=== PATIENT | male | born 1960 | race Caucasian/White ===

== ENCOUNTER 2016-08-13 18:57 | Emergency (ER) | payer BC ==
[~2016-08-13] VITALS: Ht 177.8 cm; Wt 115.9 kg
[~2016-08-13 18:57] MED LIST: ATROVENT I0.2 MG/1 M IH; DOXYCYCLINE 10100 MG PO; LISINOPRIL20 MG PO; NO HOME MEDICATIONS; PREDNISONE10 M1 PO
[2016-08-13 22:33] VITALS: BP 140/76
== END 2016-08-13 22:33 | disposition short-term general hospital (02) ==
LOC: ED 18:57
DX: S09.90XA Unspecified injury of head, initial encounter (principal); S80.01XA Contusion of right knee, initial encounter; S13.4XXA Sprain of ligaments of cervical spine, initial encounter; S23.3XXA Sprain of ligaments of thoracic spine, initial encounter; S33.5XXA Sprain of ligaments of lumbar spine, initial encounter; S30.1XXA Contusion of abdominal wall, initial encounter; S30.0XXA Contusion of lower back and pelvis, initial encounter; I10 Essential (primary) hypertension; V84.6XXA Passenger of special agricultural vehicle injured in nontraffic accident, initial encounter; Y92.89 Other specified places as the place of occurrence of the external cause; S01.01XA Laceration without foreign body of scalp, initial encounter
CPT/HCPCS: A4353; J2405; J3010; J7030; L0150

== ENCOUNTER → 2017-01-01 | Outpatient (CLI) | payer BC ==
[~2017-01-01] VITALS: Ht 177.8 cm; Wt 119.5 kg
[~2017-01-01] MED LIST changes: +AMLODIPINE BESYL5 MG PO; +CEFDINIR300 MG PO; +CLARITIN 1010 MG/TAB PO; +FLUTICASON0.05 MG/AC NS; +HYDROCHLOROTHIA50 M1 PO; +PRILOSEC 20MG20 MG PO; +TYLENOL 325MG325 MG PO; +VITAMIN B12 781 TAB PO
[2017-01-01 09:11] LABS: ALBUMIN 4.2 g/dL (3.5-5.0); BUN/CREATININE RATIO 19.6 (6.0-26.0); CALCIUM 10.2 mg/dL (8.4-10.2); POTASSIUM 3.7 mmol/L (3.6-5.0); TOTAL BILIRUBIN 1.2 mg/dL (0.2-1.3); TOTAL PROTEIN 7.6 g/dL (6.3-8.2)
[2017-01-01 09:20] LABS: PROTHROMBIN TIME 9.3 SECONDS (9.0-12.0)
[2017-01-01 09:34] LABS: PH-URINE 5.5 (5.0 - 8.0); URINE APPEARANCE CLEAR; URINE BILIRUBIN NEGATIVE (NEGATIVE); URINE BLOOD NEGATIVE (NEGATIVE); URINE COLOR YELLOW; URINE GLUCOSE NEGATIVE (NEGATIVE); URINE KETONE NEGATIVE (NEGATIVE); URINE LEUKOCYTE ESTERASE NEGATIVE (NEGATIVE); URINE NITRATE NEGATIVE (NEGATIVE); URINE PROTEIN(semi-quant) NEGATIVE (NEGATIVE); URINE UROBILINOGEN NORMAL (NORMAL); URINE WBC 0-1 /hpf (0-3)
[2017-01-01 09:39] VITALS: BP 135/78
[2017-01-01 09:54] LABS: HEMATOCRIT 41.7 % (42.0-52.0); HEMOGLOBIN 14.7 g/dL (13.5-18.0); MEAN CELL VOLUME 86 fl (78-100); MEAN CORPUSCULAR HEMOGLOBIN 30 pg (27-31); MEAN CORPUSCULAR HGB CONC 35 g/dL (33-37); MEAN PLATELET VOLUME 9.4 fl (7.4-10.4); PLATELET COUNT 224 K/mm3 (130-400); RED BLOOD COUNT 4.87 M/mm3 (4.20-5.60); RED CELL DISTRIBUTION WIDTH 13.3 % (11.5-14.5); WHITE BLOOD COUNT 5.2 K/mm3 (4.8-10.8)
[2017-01-01 09:55] LABS: LYMPHOCYTE 21 % (20-51); MONOCYTE 16 % (3-10); NEUTROPHILS 61 % (42-75)
== END ==
LOC: AMSURD 08:39
PROVIDERS: Nurse Practitioner Family
DX: Z01.818 Encounter for other preprocedural examination (principal); I10 Essential (primary) hypertension; E66.01 Morbid (severe) obesity due to excess calories

== ENCOUNTER 2017-01-12 10:48 | Emergency (ER) | payer BC ==
[~2017-01-12] VITALS: Ht 175.3 cm; Wt 113.6 kg
[2017-01-12] MEDS ORDERED: GENTAMICIN EYE D5 ML OP (10:56)
[2017-01-12] MEDS ORDERED: AMLODIPINE BESYL5 MG PO (10:57)
[2017-01-12] MEDS ORDERED: NORCO 325 MG-51 TA1 PO (12:34)
[2017-01-12 13:12] VITALS: BP 168/99
== END 2017-01-12 12:42 | disposition home or self-care (01) ==
LOC: ED 10:48
DX: S61.412A Laceration without foreign body of left hand, initial encounter (principal); Z23 Encounter for immunization; S60.222A Contusion of left hand, initial encounter; W22.8XXA Striking against or struck by other objects, initial encounter; Y92.009 Unspecified place in unspecified non-institutional (private) residence as the place of occurrence of the external cause; I10 Essential (primary) hypertension; G47.30 Sleep apnea, unspecified
CPT/HCPCS: 90715; A4550

== ENCOUNTER 2017-01-23 13:36 | Emergency (ER) | payer BC ==
[~2017-01-23 13:36] MED LIST changes: +GENTAMICIN EYE D5 ML OP; +NORCO 325 MG-51 TA1 PO
== END 2017-01-23 14:00 | disposition home or self-care (01) ==
LOC: ED 13:36
DX: Z48.02 Encounter for removal of sutures (principal)

== ENCOUNTER 2017-07-04 10:00 | Emergency (ER) | payer BC ==
[~2017-07-04] VITALS: Ht 175.3 cm; Wt 120.2 kg
[2017-07-04 10:54] LABS: HEMATOCRIT 41.4 % (42.0-52.0); HEMOGLOBIN 14.9 g/dL (13.5-18.0); MEAN CELL VOLUME 84 fl (78-100); MEAN CORPUSCULAR HEMOGLOBIN 30 pg (27-31); MEAN CORPUSCULAR HGB CONC 36 g/dL (33-37); MEAN PLATELET VOLUME 9.2 fl (7.4-10.4); PLATELET COUNT 265 K/mm3 (130-400); RED BLOOD COUNT 4.96 M/mm3 (4.20-5.60); RED CELL DISTRIBUTION WIDTH 13.4 % (11.5-14.5)
[2017-07-04 11:04] LABS: ALBUMIN 4.3 g/dL (3.5-5.0); BUN/CREATININE RATIO 19.7 (6.0-26.0); CALCIUM 10.1 mg/dL (8.4-10.2); POTASSIUM 3.1 mmol/L (3.6-5.0); TOTAL BILIRUBIN 1.4 mg/dL (0.2-1.3)
[2017-07-04 11:18] LABS: BAND 5 % (0-10); LYMPHOCYTE 4 % (20-51); MONOCYTE 4 % (3-10); NEUTROPHILS 87 % (42-75)
[2017-07-04] MEDS ORDERED: VITAMIN C500 M6 (11:41)
[2017-07-04] MEDS ORDERED: VITAMIN B122500 MC1 (11:41)
[2017-07-04 12:17] LABS: URINE APPEARANCE CLOUDY; URINE COLOR YELLOW
[2017-07-04 12:18] LABS: URINE BILIRUBIN NEGATIVE (NEGATIVE); URINE BLOOD NEGATIVE (NEGATIVE); URINE KETONE 1+ (NEGATIVE); URINE LEUKOCYTE ESTERASE NEGATIVE (NEGATIVE); URINE NITRATE NEGATIVE (NEGATIVE); URINE PROTEIN(semi-quant) 2+ mg/dL (NEGATIVE); URINE UROBILINOGEN NORMAL (NORMAL)
[2017-07-04 14:49] VITALS: BP 138/72
== END 2017-07-04 14:37 | disposition short-term general hospital (02) ==
LOC: ED 10:00
PROVIDERS: Physician Assistant
DX: K81.0 Acute cholecystitis (principal); I10 Essential (primary) hypertension; Z87.891 Personal history of nicotine dependence; Z88.0 Allergy status to penicillin; K21.9 Gastro-esophageal reflux disease without esophagitis
CPT/HCPCS: J1885; J2405; Q9967

== ENCOUNTER → 2018-01-01 | Outpatient (CLI) | payer BC ==
[~2018-01-01] VITALS: Ht 175.3 cm; Wt 121.4 kg
[~2018-01-01] MED LIST changes: +COLACE100 M1 PO; +VITAMIN B122500 MC1; +VITAMIN C500 M6
[2018-01-01 10:17] LABS: HEMATOCRIT 41.7 % (42.0-52.0); HEMOGLOBIN 14.5 g/dL (13.5-18.0); MEAN CELL VOLUME 86 fl (78-100); MEAN CORPUSCULAR HEMOGLOBIN 30 pg (27-31); MEAN CORPUSCULAR HGB CONC 35 g/dL (33-37); MEAN PLATELET VOLUME 8.8 fl (7.4-10.4); PLATELET COUNT 243 K/mm3 (130-400); RED BLOOD COUNT 4.85 M/mm3 (4.20-5.60); RED CELL DISTRIBUTION WIDTH 13.2 % (11.5-14.5); WHITE BLOOD COUNT 5.1 K/mm3 (4.8-10.8)
[2018-01-01 10:33] VITALS: BP 157/88
[2018-01-01 11:07] LABS: ALBUMIN 4.3 g/dL (3.5-5.0); POTASSIUM 3.7 mmol/L (3.6-5.0); TOTAL BILIRUBIN 1.3 mg/dL (0.2-1.3); TOTAL PROTEIN 7.6 g/dL (6.3-8.2)
[2018-01-01 12:01] LABS: LYMPHOCYTE 24 % (20-51); MONOCYTE 11 % (3-10); NEUTROPHILS 62 % (42-75)
[2018-01-01 13:23] LABS: PROTHROMBIN TIME 9.9 SECONDS (9.0-12.0)
[2018-01-01 13:25] LABS: URINE APPEARANCE CLEAR; URINE BILIRUBIN NEGATIVE (NEGATIVE); URINE BLOOD NEGATIVE (NEGATIVE); URINE COLOR YELLOW; URINE GLUCOSE NEGATIVE (NEGATIVE); URINE KETONE NEGATIVE (NEGATIVE); URINE LEUKOCYTE ESTERASE NEGATIVE (NEGATIVE); URINE NITRATE NEGATIVE (NEGATIVE); URINE PROTEIN(semi-quant) TRACE mg/dL (NEGATIVE); URINE UROBILINOGEN NORMAL (NORMAL); URINE WBC 0-1 /hpf (0-3)
== END ==
LOC: AMSURD 09:56
PROVIDERS: Family Medicine
DX: Z01.818 Encounter for other preprocedural examination (principal)

== ENCOUNTER 2019-01-18 17:42 | Emergency (ER) | payer BC ==
[~2019-01-18] VITALS: Ht 177.8 cm; Wt 119.1 kg
[2019-01-18 18:53] LABS: HEMATOCRIT 43.1 % (42.0-52.0); HEMOGLOBIN 15.1 g/dL (13.5-18.0); MEAN CELL VOLUME 83 fl (78-100); MEAN CORPUSCULAR HEMOGLOBIN 29 pg (27-31); MEAN CORPUSCULAR HGB CONC 35 g/dL (33-37); MEAN PLATELET VOLUME 8.7 fl (7.4-10.4); PLATELET COUNT 240 K/mm3 (130-400); RED BLOOD COUNT 5.21 M/mm3 (4.20-5.60); RED CELL DISTRIBUTION WIDTH 13.5 % (11.5-14.5); WHITE BLOOD COUNT 9.5 K/mm3 (4.8-10.8)
[2019-01-18 19:06] LABS: ALBUMIN 4.3 g/dL (3.5-5.0); POTASSIUM 3.1 mmol/L (3.5-5.1)
[2019-01-18 19:07] LABS: CALCIUM 9.8 mg/dL (8.3-10.5)
[2019-01-18 19:08] LABS: TOTAL PROTEIN 7.6 g/dL (6.4-8.3)
[2019-01-18 19:10] LABS: TOTAL BILIRUBIN 1.4 mg/dL (0.2-1.2)
[2019-01-18 19:22] LABS: BAND 1 % (0-10); LYMPHOCYTE 2 % (20-51); MONOCYTE 12 % (3-10); NEUTROPHILS 84 % (42-75)
[2019-01-18 20:50] LABS: URINE APPEARANCE CLEAR; URINE COLOR YELLOW
[2019-01-18 20:51] LABS: URINE BILIRUBIN NEGATIVE (NEGATIVE); URINE BLOOD TRACE (NEGATIVE); URINE KETONE NEGATIVE (NEGATIVE); URINE LEUKOCYTE ESTERASE NEGATIVE (NEGATIVE); URINE MUCUS PRESENT (NOT PRESENT); URINE NITRATE NEGATIVE (NEGATIVE); URINE PROTEIN(semi-quant) 2+ mg/dL (NEGATIVE); URINE UROBILINOGEN NORMAL (NORMAL); URINE WBC 0-1 /hpf (0-3)
[2019-01-19] MEDS ORDERED: POTASSIUM CHLO20 ME3 PO (00:25)
[2019-01-19] MEDS ORDERED: ZOFRAN ODT4 MG PO (00:25)
[2019-01-19] MEDS ORDERED: CLEOCIN HCL150 M1 PO (00:25)
[2019-01-19 00:33] VITALS: BP 126/75
== END 2019-01-19 00:33 | disposition home or self-care (01) ==
LOC: ED 17:42
PROVIDERS: Family Medicine
DX: T14.8XXA Other injury of unspecified body region, initial encounter (principal); E86.9 Volume depletion, unspecified; E87.6 Hypokalemia; R73.9 Hyperglycemia, unspecified; R80.9 Proteinuria, unspecified; I10 Essential (primary) hypertension; K21.9 Gastro-esophageal reflux disease without esophagitis; G47.30 Sleep apnea, unspecified; Z90.49 Acquired absence of other specified parts of digestive tract; W33.01XA Accidental discharge of shotgun, initial encounter
CPT/HCPCS: A4216; J0696; J7030

== ENCOUNTER → 2019-01-22 | Day surgery (SDC) | payer BC ==
[2019-01-19 00:33] VITALS: BP 126/75
[~2019-01-22] MED LIST changes: +CLEOCIN HCL150 M1 PO; +POTASSIUM CHLO20 ME3 PO; +ZOFRAN ODT4 MG PO
== END ==
LOC: MSO 08:56
DX: Z86.010 Personal history of colon polyps (principal); K63.5 Polyp of colon; K62.1 Rectal polyp; E66.01 Morbid (severe) obesity due to excess calories; Z68.37 Body mass index [BMI] 37.0-37.9, adult; K22.2 Esophageal obstruction; Z90.49 Acquired absence of other specified parts of digestive tract; Z88.0 Allergy status to penicillin; K21.0 Gastro-esophageal reflux disease with esophagitis; Z87.891 Personal history of nicotine dependence; J45.909 Unspecified asthma, uncomplicated; Z79.899 Other long term (current) drug therapy
CPT/HCPCS: G0105; 00812; J2704; J3010; J7120

== ENCOUNTER → 2019-01-30 | Outpatient (CLI) | payer BC ==
[2019-01-19 00:33] VITALS: BP 126/75
[2019-01-30 09:29] LABS: ALBUMIN 4.4 g/dL (3.5-5.0); POTASSIUM 3.3 mmol/L (3.5-5.1)
[2019-01-30 09:30] LABS: CALCIUM 10.4 mg/dL (8.3-10.5)
[2019-01-30 09:32] LABS: TOTAL PROTEIN 7.6 g/dL (6.4-8.3)
[2019-01-30 09:33] LABS: TOTAL BILIRUBIN 1.6 mg/dL (0.2-1.2)
[2019-01-30 09:43] LABS: HEMATOCRIT 43.3 % (42.0-52.0); MEAN CELL VOLUME 84 fl (78-100); MEAN CORPUSCULAR HEMOGLOBIN 29 pg (27-31); MEAN CORPUSCULAR HGB CONC 35 g/dL (33-37); MEAN PLATELET VOLUME 9.2 fl (7.4-10.4); PLATELET COUNT 308 K/mm3 (130-400); RED BLOOD COUNT 5.17 M/mm3 (4.20-5.60); RED CELL DISTRIBUTION WIDTH 13.6 % (11.5-14.5); WHITE BLOOD COUNT 3.6 K/mm3 (4.8-10.8)
[2019-01-30 09:49] LABS: URINE APPEARANCE CLEAR; URINE BILIRUBIN NEGATIVE (NEGATIVE); URINE BLOOD NEGATIVE (NEGATIVE); URINE COLOR YELLOW; URINE GLUCOSE NEGATIVE (NEGATIVE); URINE KETONE NEGATIVE (NEGATIVE); URINE LEUKOCYTE ESTERASE NEGATIVE (NEGATIVE); URINE MUCUS PRESENT (NOT PRESENT); URINE NITRATE NEGATIVE (NEGATIVE); URINE PROTEIN(semi-quant) 2+ mg/dL (NEGATIVE); URINE UROBILINOGEN NORMAL (NORMAL); URINE WBC 0-1 /hpf (0-3)
[2019-01-30 09:57] LABS: LYMPHOCYTE 38 % (20-51); MONOCYTE 12 % (3-10); NEUTROPHILS 45 % (42-75)
== END ==
LOC: LAB 09:05
PROVIDERS: Family Medicine
DX: Z00.00 Encounter for general adult medical examination without abnormal findings (principal); Z12.5 Encounter for screening for malignant neoplasm of prostate; I10 Essential (primary) hypertension; R31.9 Hematuria, unspecified; R73.9 Hyperglycemia, unspecified